=== PATIENT | female | born 1990 | race Caucasian/White ===

== ENCOUNTER → 2017-07-01 | Outpatient (REF) | payer OTHER | LOC: M SFHCWAGY 08:38 | DX: Z12.4 Encounter for screening for malignant neoplasm of cervix (principal) | CPT/HCPCS: 88142 ==

== ENCOUNTER → 2019-02-02 | Outpatient (REF) | payer OTHER | LOC: M LAB REF 09:35 | PROVIDERS: ATTEND Physician Assistant | DX: J02.9 Acute pharyngitis, unspecified (principal) ==

== ENCOUNTER → 2019-11-27 | Outpatient (CLI) | payer OTHER, SELFPAY | LOC: M LABSMTC 08:02 | PROVIDERS: ATTEND Pediatrics | DX: Z11.59 Encounter for screening for other viral diseases (principal); Z20.828 Contact with and (suspected) exposure to other viral communicable diseases ==

== ENCOUNTER → 2020-06-07 | Outpatient (REF) | payer BC ==
[2020-06-07 15:46] LABS: HEMOGLOBIN 13.2 g/dl (12.0-15.5); MEAN CORPUSCULAR HEMOGLOBIN 29.8 pg (27.0-33.0); MEAN CORPUSCULAR VOLUME 90.3 fl (80.0-96.0); PLATELET COUNT, AUTOMATED 272 10^3/uL (150-450); RED BLOOD COUNT 4.43 10^6/uL (4.00-5.40); WHITE BLOOD COUNT 9.6 10^3/uL (4.0-10.0)
[2020-06-07 16:18] LABS: FREE T4 0.96 NG/DL (0.76-1.46)
[2020-06-07 16:59] LABS: HEPATITIS C VIRUS ABY INDEX < 0.0 INDEX (<0.8); HIV 1&2 SCREEN CENTAUR NEGATIVE (NEGATIVE)
== END ==
LOC: M PLALAB 14:12
PROVIDERS: ATTEND Obstetrics & Gynecology
DX: Z34.91 Encounter for supervision of normal pregnancy, unspecified, first trimester (principal)

== ENCOUNTER → 2020-07-12 | Outpatient (CLI) | payer BC | LOC: M PLALAB 14:22 | PROVIDERS: ATTEND Specialist | DX: Z34.81 Encounter for supervision of other normal pregnancy, first trimester (principal); Z3A.00 Weeks of gestation of pregnancy not specified ==

== ENCOUNTER → 2020-07-12 | Outpatient (REF) | payer BC | LOC: M SFHCWAGY 16:49 | PROVIDERS: ATTEND Obstetrics & Gynecology | DX: Z11.3 Encounter for screening for infections with a predominantly sexual mode of transmission (principal) ==

== ENCOUNTER → 2020-08-08 | Outpatient (CLI) | payer BC ==
--- NOTE | 2020-08-08 12:47 | REP ---
INDICATION: ANATOMY. COMPARISON: None. TECHNIQUE: Transabdominal obstetric sonography. FINDINGS: Scanning through the gravid uterus demonstrates a viable single intrauterine gestation in cephalic lie. motion is observed and heart rate is recorded at 149 beats per minute. A anterior placenta is seen, grade 1, without evidence of placenta previa. Closed cervical length is measured at 4.6 cm transabdominally. No extrauterine abnormality is observed. Amniotic fluid is subjectively normal. No anomaly is seen. The following anatomic structures are identified and felt to be sonographically unremarkable: cranium, choroid plexus, cavum, cerebellum and posterior fossa, facial profile, lungs, diaphragm, left-sided stomach, abdominal wall cord insertion, three-vessel umbilical cord, kidneys and bladder, spine, and upper and lower extremities. nose and lips and four-chamber heart and outflow tract views are less than optimally seen today due to position.. Biometry chart: BPD 4.3 cm, 19 weeks 0 days Head circumference 15.5 cm, 18 weeks 3 days Abdominal circumference 13.1 cm, 18 weeks 5 days Femur length 2.8 cm, 18 weeks 5 days Humeral length 2.7 cm, 18 weeks 4 days HC AC ratio normal 1.18 Cephalic index normal 0.79 Estimated weight 251 g, 0 lb 8 oz, 69th percentile for 18 weeks 2 days IMPRESSION: Viable single intrauterine gestation at 18 weeks 5 days by today's composite sonographic criteria. IRLANDA by today's sonography 04 January 2021. No complication identified. Expected gestational age estimate based on known IRLANDA provided of 07 January 2021 is 18 weeks 2 days. <Electronically signed by Jem Jimenez > 08/08/20 [id number]
== END ==
LOC: M WHC 07:46
PROVIDERS: ATTEND Obstetrics & Gynecology
DX: Z36.3 Encounter for antenatal screening for malformations (principal); Z3A.18 18 weeks gestation of pregnancy

== ENCOUNTER → 2020-08-08 | Outpatient (REF) | payer BC | LOC: M PLALAB 12:23 | PROVIDERS: ATTEND Obstetrics & Gynecology | DX: O99.282 Endocrine, nutritional and metabolic diseases complicating pregnancy, second trimester (principal) ==

== ENCOUNTER → 2020-10-02 | Outpatient (CLI) | payer BC ==
--- NOTE | 2020-10-02 08:43 | REP ---
INDICATION: F/U ANATOMY COMPARISON: 08/08/2020 TECHNIQUE: Transabdominal obstetrical ultrasound with color Doppler evaluation. FINDINGS: Examination demonstrates a single live intrauterine in cephalic presentation. motion is identified by technologist. Placenta is noted anterior and grade 1 without evidence for placenta previa or abruption. Amniotic fluid volume is normal. Cervix appears closed. Selected gestational age: 26 weeks 1 day with IRLANDA 01/07/2021. Gestational age by current measurements 27 weeks 2 days with IRLANDA 12/30/2020. FHR equals 144 beats per minute. Estimated weight 1041 grams (81stpercentile). Anatomical assessment demonstrates normal structures including cranium, choroid plexus, cavum, cerebellum/posterior fossa, facial features, lungs, four-chamber heart/ventricular outflow tracts, diaphragm, stomach, cord insertion/three-vessel cord, kidneys/bladder, spine, and extremities. IMPRESSION: Single live intrauterine in cephalic presentation demonstrating appropriate estimated weight. In conjunction with prior examination anatomical assessment is complete and normal. <Electronically signed by Saran Cerda > 10/02/20 [id number]
== END ==
LOC: M WHC 07:52
PROVIDERS: ATTEND Advanced Practice Midwife
DX: Z34.82 Encounter for supervision of other normal pregnancy, second trimester (principal)

== ENCOUNTER → 2020-10-02 | Outpatient (CLI) | payer BC ==
[2020-10-02 14:10] LABS: FREE T4 0.73 NG/DL (0.76-1.46); THYROID STIMULATING HORMONE 5.63 uIU/ML (0.358-3.740)
== END ==
LOC: M PLALAB 09:07
PROVIDERS: ATTEND Obstetrics & Gynecology
DX: O99.282 Endocrine, nutritional and metabolic diseases complicating pregnancy, second trimester (principal)

== ENCOUNTER → 2020-10-02 | Outpatient (CLI) | payer BC ==
[2020-10-02 13:10] LABS: HEMATOCRIT 36.3 % (36.0-47.0); HEMOGLOBIN 11.8 g/dl (12.0-15.5); MEAN CORPUSCULAR HEMOGLOBIN 30.8 pg (27.0-33.0); MEAN CORPUSCULAR HGB CONC 32.5 g/dl (32.0-36.5); MEAN CORPUSCULAR VOLUME 94.8 fl (80.0-96.0); PLATELET COUNT, AUTOMATED 211 10^3/uL (150-450); RED BLOOD COUNT 3.83 10^6/uL (4.00-5.40); WHITE BLOOD COUNT 9.2 10^3/uL (4.0-10.0)
== END ==
LOC: M PLALAB 09:04
PROVIDERS: ATTEND Advanced Practice Midwife
DX: Z34.82 Encounter for supervision of other normal pregnancy, second trimester (principal)

== ENCOUNTER → 2020-11-22 | Outpatient (CLI) | payer BC ==
[2020-11-22 15:53] LABS: ALBUMIN 2.7 GM/DL (3.2-5.2); ALT/SGPT 20 U/L (12-78); BILIRUBIN,DIRECT < 0.1 MG/DL (0.0-0.2); BILIRUBIN,TOTAL 0.3 MG/DL (0.2-1.0); TOTAL PROTEIN 6.1 GM/DL (6.4-8.2)
== END ==
LOC: M PLALAB 12:36
PROVIDERS: ATTEND Advanced Practice Midwife
DX: L28.2 Other prurigo (principal)

== ENCOUNTER 2020-11-25 23:14 | Outpatient (CLI) | payer BC ==
[~2020-11-25] VITALS: Ht 165.1 cm; Wt 82.7 kg
[2020-11-25 23:44] VITALS: BP 130/75
[2020-11-26] MEDS ORDERED: LR 1,000 ML IV ONE (01:10)
[2020-11-26] MEDS ORDERED: LR 1,000 ML IV SCH (01:10)
[2020-11-26] MEDS ORDERED: ONDANSETRON 4MG/2ML VIAL IV ONE (01:10)
[2020-11-26 01:58] VITALS: BP 127/78
--- NOTE | 2020-11-26 02:11 | IPNPDOC ---
Obstetrical Progress Note Date of Service Nov 26, 2020 Subjective 30yo at 33+6 weeks EGA. Patient is s/p trip and fall while at work. No contact with abdomen. +FM; but had a period of decreased FM since fall shortly after coming home from work, which made her nervous about well being. In triage, she states baby is now moving very frequently. No abdominal / uterine pain or painful contractions, no vaginal bleeding or loss of fluid. PN course uncomplicated. VSS/af Abd: soft,nt,nd, no uterine fundal tenderness Ext: no c/c/e US,hill: cephalic, MVP 5cm. Multiple pockets >2cm, no placental anomaly EFM: Cat I, no decels [place]: irreg/rare ctx. A/P: 30yo s/p slip and fall, no injury. No abdominal contact. No clinical evidence of placental abruption. Reassuring maternal and status. -Routine third TM precautions reviewed. -Follow up in office as scheduled. DO HAMMAD Harden JONATHAN R. DO Nov 26, 2020 02:11
== END 2020-11-26 02:05 | disposition home or self-care (01) ==
LOC: M LDO 23:14
PROVIDERS: ATTEND Obstetrics & Gynecology
DX: O36.8130 Decreased fetal movements, third trimester, not applicable or unspecified (principal); Z04.3 Encounter for examination and observation following other accident; Z3A.33 33 weeks gestation of pregnancy
CPT/HCPCS: 59025; 76815; G0378; G0463

== ENCOUNTER → 2020-12-08 | Outpatient (CLI) | payer BC ==
[~2020-12-08] MED LIST: PRENTAB9 PO; SYNT150T PO
[2020-12-08 18:26] LABS: THYROID STIMULATING HORMONE 0.348 uIU/ML (0.358-3.740)
== END ==
LOC: M PLALAB 14:58
PROVIDERS: ATTEND Advanced Practice Midwife
DX: O99.283 Endocrine, nutritional and metabolic diseases complicating pregnancy, third trimester (principal)

== ENCOUNTER → 2020-12-08 | Outpatient (REF) | payer BC | LOC: M SFHCWAGY 17:09 | PROVIDERS: ATTEND Advanced Practice Midwife | DX: O99.283 Endocrine, nutritional and metabolic diseases complicating pregnancy, third trimester (principal) ==

== ENCOUNTER 2020-12-13 04:52 | Inpatient (IN) | payer BC ==
[~2020-12-13] VITALS: Ht 165.1 cm; Wt 83.6 kg
[2020-12-13] VITALS (16 sets, daily range): BP systolic 100–147; BP diastolic 59–109
[2020-12-13 06:38] LABS: HEMATOCRIT 34.5 % (36.0-47.0); HEMOGLOBIN 11.2 g/dl (12.0-15.5); MEAN CORPUSCULAR HEMOGLOBIN 28.6 pg (27.0-33.0); MEAN CORPUSCULAR HGB CONC 32.5 g/dl (32.0-36.5); MEAN CORPUSCULAR VOLUME 88.2 fl (80.0-96.0); PLATELET COUNT, AUTOMATED 211 10^3/uL (150-450); RED BLOOD COUNT 3.91 10^6/uL (4.00-5.40); WHITE BLOOD COUNT 9.8 10^3/uL (4.0-10.0)
[2020-12-13] MEDS ORDERED: METHYLERGONOVINE MALEATE 0.2 MG/ML VIAL (J2210) IM PRN (07:15)
[2020-12-13] MEDS ORDERED: OXYTOCIN INJ 10 UNITS/ML VIAL (J2590) IM PRN (07:15)
[2020-12-13] MEDS ORDERED: TRANEXAMIC ACID INJection 1,000 MG in NS 100 ML IV PRN (07:15)
[2020-12-13] MEDS ORDERED: LIDOCAINE 1% MDV 20ML VIAL INFIL PRN (07:15)
[2020-12-13] MEDS ORDERED: CARBOPROST TROMETHAMINE 250 MCG/ML AMP IM PRN (07:15)
[2020-12-13] MEDS ORDERED: OXYTOCIN DRIP 30 UNITS in IV 1 EA IV PRN ×4 (07:15)
[2020-12-13] MEDS ORDERED: BETAMETHASONE SOLUSPAN 6MG/ML 5ML VIAL (J0702 PER 3MG) IM SCH (07:15)
[2020-12-13] MEDS: miSOPROStol 50MCG 1/2 TABLET PO SCH ×2 (07:37→12:00)
--- NOTE | 2020-12-13 07:53 | HPE ---
HISTORY AND PHYSICAL DATE OF ADMISSION: 12/13/2020 HISTORY OF PRESENT ILLNESS: This is a 30-year-old 2 para 1-0-1-0 at 36 weeks and 3/7th weeks gestation with an EDC of 01/07/2021 based on first trimester ultrasound. She presents to Labor and Delivery today with reports of spontaneous rupture of membranes at 0430. She reports some mild contractions. She denies vaginal bleeding. The fetus has been active. care was initiated at [facility] in the first trimester. The course was complicated by hypothyroidism, history of Graves' disease treated with iodine radiation, currently controlled with 125 mcg of Levothyroxine. OBSTETRIC HISTORY: October 2012, elective termination of at 9 weeks gestation. OBSTETRIC LABS: B positive, antibody screen negative, syphilis negative, gonorrhea and chlamydia negative. Hepatitis B surface antigen negative, hepatitis C antibody nonreactive. HIV nonreactive. Urine culture: No growth. Rubella immune. Gestational diabetic screenin. GBS negative. PAST MEDICAL HISTORY: Hypothyroidism, Graves' disease. PAST SURGICAL HISTORY: None. FAMILY HISTORY: Lung cancer, diabetes, hypertension. SOCIAL HISTORY: The patient is single. She is a teacher. She is a smoker of approximately five cigarettes a day. Denies alcohol and drug use. No history of sexually transmitted infections. She denies a history of abuse, physical, sexual and emotional. ALLERGIES: Penicillin causes hives. Latex causes a rash. CURRENT MEDICATIONS: Levothyroxine 125 mcg daily, and vitamin. OBJECTIVE: Temperature is 97.6, pulse is 79, BP is 119/82, alert and oriented x3. She is in no discomfort. heart rate is 140 with moderate variability, positive accelerations, negative decelerations, contractions are every 4 minutes. Her abdomen is gravid, cephalic presentation, estimated weight is 6 pounds, grossly ruptured per Dr. Gregorio West. Sterile vaginal exam: Fingertip, 50% effaced, -3 station. ASSESSMENT: Intrauterine at 36 and 3/7th weeks. heart rate is Category 1, pre-term premature rupture of membranes. PLAN: Admit patient to Labor and Delivery, routine laboratories, out of bed ad fernando, regular diet at this time. Saline lock for IV access. Betamethasone 12 mg for lung maturity. Start Misoprostol 50 mcg p.o. q. 4 hours for cervical ripening. The risks, benefits and alternatives have been reviewed with the patient, all of her questions have been answered. She has been verbally consented for emergency surgery and blood products if they are necessary. I anticipate cervical ripening. The patient will likely consider an epidural when she is in active labor.
[2020-12-13] MEDS ORDERED: SYNT150T PO (09:37)
[2020-12-13] MEDS ORDERED: PRENTAB9 PO (09:37)
[2020-12-13] MEDS ORDERED: HOME MED LIST COMPLETE! XX SCH (09:40)
[2020-12-13] MEDS: LEVOTHYROXINE 137MCG TABLET (0.137MG) PO SCH (09:55)
[2020-12-13] MEDS ORDERED: ACETAMINOPHEN 500 MG TAB PO PRN (14:20)
[2020-12-13] MEDS ORDERED: ACETAMINOPHEN TAB 650MG DOSE (2X325MG) PO PRN (14:20)
[2020-12-13] MEDS ORDERED: DOCUSATE SODIUM 100MG CAPSULE PO PRN (14:20)
[2020-12-13] MEDS ORDERED: RHOGAM 300 MCG (1500 IU) INJ (J2790) IM SCH (14:20)
[2020-12-13] MEDS ORDERED: MEASLES,MUMPS,RUBELLA VACCINE INJ (MMR-II) (90707) SC SCH (14:20)
[2020-12-13] MEDS ORDERED: IBUPROFEN 800 MG TAB PO PRN (14:20)
[2020-12-13] MEDS ORDERED: DIBUCAINE 1% OINTMENT 30GM TOP PRN (14:20)
[2020-12-13] MEDS ORDERED: METHYLERGONOVINE MALEATE 0.2 MG TAB PO PRN (14:20)
[2020-12-13] MEDS ORDERED: IBUPROFEN 600MG TAB PO PRN (14:20)
--- NOTE | 2020-12-13 15:47 | DN ---
DELIVERY NOTE DATE OF DELIVERY: 12/13/2020 Manish is a 30-year-old 2, para 0-1-1-1, who was admitted to labor and delivery with premature rupture of membranes. She had two doses of misoprostol, one dose of betamethasone, and labor did ensue. She reached complete dilation at 1327. She pushed to a normal spontaneous vaginal delivery of a live male infant in OA position with restitution to right occiput transverse (ROT) position at 1335. There was no nuchal cord. The shoulders delivered spontaneously, and the corpus immediately followed. The male was placed on the maternal abdomen crying and active. Mouth and nares were bulb suctioned. The cord was clamped times two once pulsations ceased and cut by the father of the baby under my direction. Spontaneous expulsion of an intact placenta with 3-vessel cord by Coombs mechanism was at 1353. Uterine hemostasis achieved with intravenous (IV) Pitocin rapid infusion. Methergine 0.2 mg intramuscular (IM) and uterine fundal massage. Estimated blood loss 350 mL. Perineum and vagina inspected. Noted to have first-degree midline laceration as well as a right labial laceration. The lacerations were infiltrated with 1% lidocaine and repaired with 3-0 Vicryl Rapide in the usual fashion. The male weighed 6 pounds 13 ounces, 3080 grams. scores were 9 and 9. Mother is going to breast-feed her son, and the family have named their son Efrain. At the close of delivery, lap counts, needle counts, and instrument counts were correct and verified.
[2020-12-14] MEDS: LEVOTHYROXINE 137MCG TABLET (0.137MG) PO SCH (05:23)
[2020-12-14 06:00] VITALS: BP 112/73
[2020-12-14] MEDS: PRENATAL VITAMINS CHEWABLE TABLET PO SCH (07:41)
--- NOTE | 2020-12-14 15:19 | IPNPDOC ---
Progress Note Date of Service: Dec 14, 2020 Progress Note SUBJECT: Status post . She has been ambulating, voiding spontaneously without issue and tolerating regular diet. Lochia decreasing/minimal. Pain is well-controlled. Denies headache, visual changes, right upper quadrant pain, shortness breath or chest pain. OBJECTIVE: VITAL SIGNS: Within normal limits, afebrile. Alert and oriented times three. Abdomen: Fundus firm at U-2. Soft, NTTP. ASSESSMENT: Status post uncomplicated spontaneous vaginal delivery. Vitals within normal limits, afebrile, hemodynamically stable with no evidence of infection. PLAN: Discharge to home tomorrow Tylenol and Motrin for pain. Routine instructions/precautions reviewed. Routine PP visit in 6 weeks in clinic. VS, I&O, 24H, Fishbone Vital Signs/I&O Vital Signs Date Time Temp Pulse Resp B/P (MAP) Pulse Ox O2 Delivery O2 Flow Rate FiO2 12/14/20 06:00 98.4 88 18 112/73 (86) Room Air I&O- Last 24 Hours up to 6 AM 12/14/20 06:00 Intake Total 500 ml Output Total 1000 ml Balance -500 ml HATTIE CUEVA DO Dec 14, 2020 15:19
[2020-12-14] MEDS ORDERED: HYDROCORTISONE 1% CREAM 30 GM TOP PRN (17:45)
[2020-12-14 18:00] VITALS: BP 116/57
[2020-12-15 06:00] VITALS: BP 115/69
[2020-12-15] MEDS: LEVOTHYROXINE 137MCG TABLET (0.137MG) PO SCH (06:14)
[2020-12-15] MEDS: PRENATAL VITAMINS CHEWABLE TABLET PO SCH (08:24)
[2020-12-15] MEDS ORDERED: BOOSTRIX/ADACEL VACCINE (DIPHTH/PERTUSS/ACELL/TETANUS) 0.5ML SYR IM ONE (11:00)
[2020-12-15] MEDS ORDERED: IBUP80TA PO (11:20)
[2020-12-15] MEDS ORDERED: ACET-683 PO (11:20)
[2020-12-15] MEDS ORDERED: COLA100C5 PO (11:20)
== END 2020-12-15 15:19 | disposition home or self-care (01) | DRG 560 ==
LOC: M LDO 04:52 → M LDI 05:40 → M OBS 17:22
PROVIDERS: ADMIT Specialist; ATTEND Advanced Practice Midwife
PROC: 10E0XZZ Delivery of Products of Conception, External Approach (ICD-10-PCS; principal; 2020-12-13)
PROC: 0HQ9XZZ Repair Perineum Skin, External Approach (ICD-10-PCS; 2020-12-13)
DX: O42.013 Preterm premature rupture of membranes, onset of labor within 24 hours of rupture, third trimester (principal); E89.0 Postprocedural hypothyroidism; O99.334 Smoking (tobacco) complicating childbirth; F17.210 Nicotine dependence, cigarettes, uncomplicated; O99.284 Endocrine, nutritional and metabolic diseases complicating childbirth; O70.0 First degree perineal laceration during delivery; Z37.0 Single live birth

== ENCOUNTER → 2020-12-20 | Outpatient (CLI) | payer BC ==
[~2020-12-20] MED LIST changes: +ACET-683 PO; +COLA100C5 PO; +IBUP80TA PO
== END ==
LOC: M LABSMTC 11:08
PROVIDERS: ATTEND Family Medicine
DX: Z11.52 Encounter for screening for COVID-19 (principal)

== ENCOUNTER → 2021-01-30 | Outpatient (CLI) | payer BC ==
--- NOTE | 2021-01-30 12:52 | REP ---
INDICATION: IRREGULAR BLEEDING POST . COMPARISON: None. TECHNIQUE: Transabdominal and transvaginal scanning performed. FINDINGS: Uterine dimensions are 8.6 x 4.6 x 5.9 cm. Endometrial echo is heterogeneous and 27 mm in AP dimension and centrally placed. There is no endometrial fluid collection. The bladder measures 14.3 x 7.8 x 9.9cm. The right ovary has dimensions of 2.9 x 1.3 x 2.2 cm. It's Doppler flow is normal with a resistive index of 0.49. The left ovary dimensions are 3.4 x 1.6 x 2.2 cm. It's Doppler flow was normal with resistive index of 0.54. There is no adnexal mass identified. No free fluid is seen in the cul-de-sac. IMPRESSION: Thickened heterogeneous endometrium, maximum thickness is 27 mm. The findings suggest blood products and/or retained products of conception in the endometrial cavity. <Electronically signed by Ghassan Serna > 01/30/21 [id number]
== END ==
LOC: M WHC 10:23
PROVIDERS: ATTEND Advanced Practice Midwife
DX: N92.6 Irregular menstruation, unspecified (principal)

== ENCOUNTER → 2021-03-03 | Outpatient (CLI) | payer BC ==
[~2021-03-03] MED LIST changes: +LEVO-94 PO
== END ==
LOC: M LABSMTC 11:49
PROVIDERS: ATTEND Anesthesiology
DX: Z11.52 Encounter for screening for COVID-19 (principal); Z20.822 Contact with and (suspected) exposure to COVID-19

== ENCOUNTER 2021-03-07 11:22 | Day surgery (SDC) | payer BC ==
[~2021-03-07] VITALS: Ht 165.1 cm; Wt 75.7 kg
[~2021-03-07 11:22] MED LIST changes: +LR 1,000 ML IV ONE
--- OUTSIDE RECORDS SUMMARY | 2021-03-07 11:26 | CCD ---
Author Author [facility] Organization [facility] Address Unknown Phone Unavailable Care Team Providers Care Chief Internal Auditor Name Role Phone IGOR, DAVY PA Unavailable Unavailable IGOR, DAVY PA Unavailable Unavailable IGOR, DAVY PA Unavailable Unavailable IGOR, DAVY PA Unavailable Unavailable IGOR, DAVY PA Unavailable Unavailable IGOR, DAVY PA Unavailable Unavailable IGOR, DAVY PA Unavailable Unavailable IGOR, DAVY PA Unavailable Unavailable IGOR, DAVY PA Unavailable Unavailable IGOR, DAVY PA Unavailable Unavailable IGOR, DAVY PA Unavailable Unavailable IGOR, DAVY PA Unavailable Unavailable IGOR, DAVY PA Unavailable Unavailable IGOR, DAVY PA Unavailable Unavailable IGOR, DAVY PA Unavailable Unavailable Yuko, A Rosie SERVICE DOG TRAINER Unavailable Unavailable Yuko, A Rosie SERVICE DOG TRAINER Unavailable Unavailable Yuko, A Rosie SERVICE DOG TRAINER Unavailable Unavailable Yuko, A Rosie SERVICE DOG TRAINER Unavailable Unavailable Yuko, A Rosie SERVICE DOG TRAINER Unavailable Unavailable Yuko, A Rosie SERVICE DOG TRAINER Unavailable Unavailable Yuko, A Rosie SERVICE DOG TRAINER Unavailable Unavailable Yuko, A Rosie SERVICE DOG TRAINER Unavailable Unavailable Yuko, A Rosie SERVICE DOG TRAINER Unavailable Unavailable Yuko, A Rosie SERVICE DOG TRAINER Unavailable Unavailable Yuko, A Rosie SERVICE DOG TRAINER Unavailable Unavailable Yuko, A Rosie SERVICE DOG TRAINER Unavailable Unavailable Yuko, A Rosie SERVICE DOG TRAINER Unavailable Unavailable Yuko, A Rosie SERVICE DOG TRAINER Unavailable Unavailable Yuko, A Rosie SERVICE DOG TRAINER Unavailable Unavailable Yuko, A Rosie SERVICE DOG TRAINER Unavailable Unavailable Yuko, A Rosie SERVICE DOG TRAINER Unavailable Unavailable Yuko, A Rosie SERVICE DOG TRAINER Unavailable Unavailable Yuko, A Rosie SERVICE DOG TRAINER Unavailable Unavailable Yuko, A Rosie SERVICE DOG TRAINER Unavailable Unavailable Yuko, A Rosie SERVICE DOG TRAINER Unavailable Unavailable Yuko, A Rosie SERVICE DOG TRAINER Unavailable Unavailable Yuko, A Rosie SERVICE DOG TRAINER Unavailable Unavailable Yuko, A Rosie SERVICE DOG TRAINER Unavailable Unavailable Yuko, A Rosie SERVICE DOG TRAINER Unavailable Unavailable Yuko, A Rosie SERVICE DOG TRAINER Unavailable Unavailable Yuko, A Rosie SERVICE DOG TRAINER Unavailable Unavailable Yuko, A Rosie SERVICE DOG TRAINER Unavailable Unavailable Yuko, A Rosie SERVICE DOG TRAINER Unavailable Unavailable Yuko, A Rosie SERVICE DOG TRAINER Unavailable Unavailable Yuko, A Rosie SERVICE DOG TRAINER Unavailable Unavailable Yuko, A Rosie SERVICE DOG TRAINER Unavailable Unavailable Yuko, A Rosie SERVICE DOG TRAINER Unavailable Unavailable Yuko, A Rosie SERVICE DOG TRAINER Unavailable Unavailable Yuko, A Rosie SERVICE DOG TRAINER Unavailable Unavailable Yuko, A Rosie SERVICE DOG TRAINER Unavailable Unavailable Yuko, A Rosie SERVICE DOG TRAINER Unavailable Unavailable Yuko, A Rosie SERVICE DOG TRAINER Unavailable Unavailable Yuko, A Rosie SERVICE DOG TRAINER Unavailable Unavailable Yuko, A Rosie SERVICE DOG TRAINER Unavailable Unavailable Yuko, A Rosie SERVICE DOG TRAINER Unavailable Unavailable Yuko, A Rosie SERVICE DOG TRAINER Unavailable Unavailable Yuko, A Rosie SERVICE DOG TRAINER Unavailable Unavailable Yuko, A Rosie SERVICE DOG TRAINER Unavailable Unavailable Yuko, A Rosie SERVICE DOG TRAINER Unavailable Unavailable Yuko, A Rosie SERVICE DOG TRAINER Unavailable Unavailable Yuko, A Rosie SERVICE DOG TRAINER Unavailable Unavailable Yuko, A Rosie SERVICE DOG TRAINER Unavailable Unavailable Yuko, A Rosie SERVICE DOG TRAINER Unavailable Unavailable Yuko, A Rosie SERVICE DOG TRAINER Unavailable Unavailable Yuko, A Rosie SERVICE DOG TRAINER Unavailable Unavailable Yuko, A Rosie SERVICE DOG TRAINER Unavailable Unavailable Yuko, A Rosie SERVICE DOG TRAINER Unavailable Unavailable Yuko, A Rosie SERVICE DOG TRAINER Unavailable Unavailable Yuko, A Rosie SERVICE DOG TRAINER Unavailable Unavailable KOLBY WILLARD MD Unavailable Unavailable MONTSE, KOLBY ROUSE MD Unavailable Unavailable MONTSEKOLBY MD Unavailable Unavailable MONTSEKOLBY MD Unavailable Unavailable MONTSE, KOLBY ROUSE MD Unavailable Unavailable MONTSE, KOLBY ROUSE MD Unavailable Unavailable MONTSE, KOLBY ROUSE MD Unavailable Unavailable MONTSEKOLBY MD Unavailable Unavailable MONTSEKOLBY MD Unavailable Unavailable ESTEE, Giacomo JUSTICE MD Unavailable Unavailable ESTEE, Giacomo JUSTICE MD Unavailable Unavailable ESTEE, Giacomo JUSTICE MD Unavailable Unavailable ESTEE, Giacomo JUSTICE MD Unavailable Unavailable ESTEE, Giacomo JUSTICE MD Unavailable Unavailable ESTEE, Giacomo JUSTICE MD Unavailable Unavailable ESTEE, Giacomo JUSTICE MD Unavailable Unavailable ESTEE, Giacomo JUSTICE MD Unavailable Unavailable ESTEE, Giacomo JUSTICE MD Unavailable Unavailable ESTEE, Giacomo JUSTICE MD Unavailable Unavailable ESTEE, Giacomo JUSTICE MD Unavailable Unavailable ESTEE, Giacomo JUSTICE MD Unavailable Unavailable ESTEE, Giacomo JUSTICE MD Unavailable Unavailable ESTEE, Giacomo JUSTICE MD Unavailable Unavailable ESTEE, Giacomo JUSTICE MD Unavailable Unavailable ESTEE, Giacomo JUSTICE MD Unavailable Unavailable ESTEE, Giacomo JUSTICE MD Unavailable Unavailable ESTEE, Giacomo JUSTICE MD Unavailable Unavailable ESTEE, Giacomo JUSTICE MD Unavailable Unavailable ESTEE, Giacomo JUSTICE MD Unavailable Unavailable ESTEE, Giacomo JUSTICE MD Unavailable Unavailable ESTEE, Giacomo JUSTICE MD Unavailable Unavailable ESTEE, Giacomo JUSTICE MD Unavailable Unavailable ESTEE, Giacomo JUSTICE MD Unavailable Unavailable ESTEE, Giacomo JUSTICE MD Unavailable Unavailable SETEE, Giacomo JUSTICE MD Unavailable Unavailable ESTEE, Giacomo JUSTICE MD Unavailable Unavailable ESTEE, Giacomo JUSTICE MD Unavailable Unavailable ESTEE, Giacomo JUSTICE MD Unavailable Unavailable ESTEE, E VINH EVANGELISTA Unavailable Unavailable ESTEE, E VINH EVANGELISTA Unavailable Unavailable ESTEE, E VINH EVANGELISTA Unavailable Unavailable ESTEE, E VINH EVANGELISTA Unavailable Unavailable ESTEE, E VINH EVANGELISTA Unavailable Unavailable ESTEE, E VINH EVANGELISTA Unavailable Unavailable ESTEE, E VINH EVANGELISTA Unavailable Unavailable ESTEE, E VINH EVANGELISTA Unavailable Unavailable ESTEE, E VINH EVANGELISTA Unavailable Unavailable ESTEE, E VINH EVANGELISTA Unavailable Unavailable ESTEE, E VINH EVANGELISTA Unavailable Unavailable ESTEE, E VINH EVANGELISTA Unavailable Unavailable ESTEE, E VINH EVANGELISTA Unavailable Unavailable ESTEE, E VINH EVANGELISTA Unavailable Unavailable ESTEE, E VINH EVANGELISTA Unavailable Unavailable ESTEE, E VINH EVANGELISTA Unavailable Unavailable ESTEE, E VINH EVANGELISTA Unavailable Unavailable ESTEE, E VINH EVANGELISTA Unavailable Unavailable ESTEE, E VINH EVANGELISTA Unavailable Unavailable ESTEE, E VINH EVANGELISTA Unavailable Unavailable ESTEE, E VINH EVANGELISTA Unavailable Unavailable ESTEE, E VINH EVANGELISTA Unavailable Unavailable ESTEE, E VINH EVANGELISTA Unavailable Unavailable ESTEE, E VINH EVANGELISTA Unavailable Unavailable ESTEE, E VINH EVANGELISTA Unavailable Unavailable ESTEE, E VINH EVANGELISTA Unavailable Unavailable ESTEE, E VINH EVANGELISTA Unavailable Unavailable ESTEE, E VINH EVANGELISTA Unavailable Unavailable ESTEE, E VINH EVANGELISTA Unavailable Unavailable ESTEE, E VINH EVANGELISTA Unavailable Unavailable ESTEE, E VINH EVANGELISTA Unavailable Unavailable ESTEE, E VINH EVANGELISTA Unavailable Unavailable ESTEE, E VINH EVANGELISTA Unavailable Unavailable ESTEE, E VINH EVANGELISTA Unavailable Unavailable ESTEE, E VINH EVANGELISTA Unavailable Unavailable ESTEE, E VINH EVANGELISTA Unavailable Unavailable ESTEE, E VINH EVANGELISTA Unavailable Unavailable ESTEE, E VINH EVANGELISTA Unavailable Unavailable ESTEE, E VINH EVANGELISTA Unavailable Unavailable ESTEE, E VINH EVANGELISTA Unavailable Unavailable ESTEE, E VINH EVANGELISTA Unavailable Unavailable ESTEE, E VINH EVANGELISTA Unavailable Unavailable ESTEE, E VINH EVANGELISTA Unavailable Unavailable ESTEE, E VINH EVANGELISTA Unavailable Unavailable ESTEE, E VINH EVANGELISTA Unavailable Unavailable ESTEE, E VINH EVANGELISTA Unavailable Unavailable ESTEE, Giacomo JUSTICE MD Unavailable Unavailable ESTEE, Giacomo JUSTICE MD Unavailable Unavailable ESTEE, Giacomo JUSTICE MD Unavailable Unavailable ESTEE, Giacomo JUSTICE MD Unavailable Unavailable ESTEE, Giacomo JUSTICE MD Unavailable Unavailable ESTEE, Giacomo JUSTICE MD Unavailable Unavailable ESTEE, Giacomo JUSTICE MD Unavailable Unavailable ESTEE, Giacomo JUSTICE MD Unavailable Unavailable ALEJANDRO, GEORGE DORY PA-C Unavailable Unavailable ALEJANDRO, GEORGE DORY PA-C Unavailable Unavailable ALEJANDRO, GEORGE DORY PA-C Unavailable Unavailable ALEJANDRO, GEORGE DORY PA-C Unavailable Unavailable ALEJANDRO, GEORGE DORY PA-C Unavailable Unavailable ALEJANDRO, GEORGE DORY PA-C Unavailable Unavailable ALEJANDRO, GEORGE DORY PA-C Unavailable Unavailable ALEJANDRO, GEORGE DORY PA-C Unavailable Unavailable ALEJANDRO, GEORGE DORY PA-C Unavailable Unavailable ALEJANDRO, GEORGE DORY PA-C Unavailable Unavailable Re-disclosure Warning The records that you are about to access may contain information from federally-assisted alcohol or drug abuse programs. If such information is present, then the following federally mandated warning applies: This information has been disclosed to you from records protected by federal confidentiality rules (42 CFR part 2). The federal rules prohibit you from making any further disclosure of this information unless further disclosure is expressly permitted by the written consent of the person to whom it pertains or as otherwise permitted by 42 CFR part 2. A general authorization for the release of medical or other information is NOT sufficient for this purpose. The Federal rules restrict any use of the information to criminally investigate or prosecute any alcohol or drug abuse patient.The records that you are about to access may contain highly sensitive health information, the redisclosure of which is protected by Article 27-F of the [facility] Public Health law. If you continue you may have access to information: Regarding HIV / AIDS; Provided by facilities licensed or operated by the [facility] Office of Mental Health; or Provided by the [facility] Office for People With Developmental Disabilities. If such information is present, then the following [facility] mandated warning applies: This information has been disclosed to you from confidential records which are protected by state law. State law prohibits you from making any further disclosure of this information without the specific written consent of the person to whom it pertains, or as otherwise permitted by law. Any unauthorized further disclosure in violation of state law may result in a fine or fdc sentence or both. A general authorization for the release of medical or other information is NOT sufficient authorization for further disc losure. Allergies and Adverse Reactions Type Description Substance Reaction Status Data Source(s ) Propensity to adverse reactions AZITHROMYCIN [facility] Family History Family Member Name Family Member Gender Family Member Status Date o f Status Description Data Source(s) Unknown Unknown Problem [facility] ([facility] Unknown Unknown Problem [facility] ([facility]) Unknown Unknown Problem [facility] ([facility]) Unknown Unknown Problem [facility] ([facility]) Unknown Unknown Problem MEDENT ([facility]) pgf,father Encounters Encounter Providers Location Date Indications Data Source(s ) Outpatient Attender: VINH FONTANEZ MD [id number] 1 04/08/2020 12:00:00 AM [facility] Outpatient Attender: Rosie Huntley FNPReferrer: Rosie Huntley [facility] 05/24/2020 03:02:00 PM [facility] - 05/24/2020 03:02:00 PM [facility] Outpatient Attender: VINH FONTANEZ MDReferrer: Rosie Huntley [facility]LABOTHPROV 05/24/2020 03:01:00 PM [facility] - 05/24/2020 03:01:00 PM [facility] Outpatient Attender: Rosie LOAIZAP 05/24/2020 02:20 :00 PM [facility] Outpatient [facility] 05/24/2020 12:00:00 AM EST eCW1 ([facility]) Outpatient [facility] 05/24/2020 12:00:00 AM EST eCW1 ([facility]) Outpatient Attender: VINH FONTANEZ MD [id number] 04/08/2019 12:00:00 AM EST - 02/07/2020 11:40:55 AM EST Postprocedural hypothyroidism [facility] Postprocedural hypothyroidism Inpatient Attender: PAMDA WILLARD MDAdmitter: DORY ALLEN PA-C 12/19/2012 10:18:00 PM EDT - 12/20/2012 09:30:00 AM EDT [facility] Emergency Attender: DAVY FLORES 09/03 10:23:00 AM EDT - 09/03/2012 01:30:00 PM [facility] Medications Medication Brand Name Start Date Product Form Dose Route Admi nistrative Instructions Pharmacy Instructions Status Indications Reaction Description Data Source(s) Levothyroxine Sodium 0.125 MG Oral Table t Levothyroxine Sodium 125 MCG Oral Tablet (SYNTHROID) Levothyroxine Sodium 125 MCG Oral Tablet (SYNTHROID) 01/09/2020 12:00:00 AM EDT active [place] red hypothyroidism Take 1 tablet by mouth once daily [facility] Acquired hypothyroidism Insurance Providers Payer name Policy type / Coverage type Policy ID Covered alliance party ID Covered alliance party's relationship to green[place] Policy [place] Plan Information [employer] U [id number] Child [id number] [facility] U [id number] Self [id number] [facility] I [id number] Self [id number] [facility] MEDICAID [id number] S [id number] [facility] U [id number] Self [id number] [facility] MEDICAID [id number] S [id number] [facility] MEDICAID [id number] S [id number] [facility] MEDICAID [id number] S [id number] [employer] [id number] CHILD [id number] SELF PAY [id number] S [id number] [facility] MEDICAID [id number] S [id number] [facility] COMM[facility]AN [facility] [id number] SP [id number] SELF PAY ONLY [id number] SP [id number] UN COMMUNITY PLAN [facility] [id number] SP [id number] [facility] [id number] [facility] [id number] [facility] [id number] ANSI-Medicaid [id number] UNITED HE[employer]CARE MEDICAID [id number] S [id number] [facility] [id number] [facility] Health Maintenance Organization ([facility]) [id number] Self [id number] [facility] Health Maintenance Organization ([facility]) [id number] Self UN COMMUNITY PLAN MCDO [id number] SP [id number] UNITED [employer] MEDICAID [id number] HMO [id number] S [id number] SELF PAY UNAVAILABLE SP UNAVAILA BLE [place] Commercial [id number] Family Dependent POMCO [id number] [place] O [id number] P [id number] [facility] FEDERAL SERVICES [facility] [id number] S [id number] O UNAVAILABLE UNAVAILA BLE [place] P[place] 302/307 [id number] SP [id number] [employer] [place] 306/806 [id number] SP [id number] [employer] [place] 306/806 [id number] SP [id number] [employer] [place] PPO 302/307 [id number] SP [id number] [employer] [place] PPO 302/307 [id number] SP [id number] [employer] [place] [id number] S [id number] Problems, Conditions, and Diagnoses Code Display Name Description Problem Type Effective Dates Data Source(s) E89.0 Postprocedural hypothyroidism POSTPROCEDURAL HYPOTHYRO IDISM Diagnosis 05/24/2020 03:01:00 PM [facility] Z34.91 Encounter for supervision of normal , unspecified, first trimester ENCNTR FOR SUPRVSN OF NORMAL PREG, UNSP, FIRST TRI Diagnosis 05/24/2020 02:20:00 PM [facility] Z32.01 Encounter for test, result pos itive ENCOUNTER FOR TEST, RESULT POSITIVE Diagnosis [facility]2 Amenorrhea, unspecified AMENORRHEA, UNSPECIFIED Diagno sis 05/24/2020 02:20:00 PM [facility] N91.2 [id number] Amenorrhea Problem 05/24/2020 12:00:00 AM ES T eCW1 ([facility]) Surgeries/Procedures No Information Results ID Date Data Source [id number] 03/03/2021 11:50:00 AM EST [facility] Name Value Range Interpretation Code Description Data Chelsey rce(s) Supporting Document(s) SARS-CoV-2 (COVID-19) RNA [Presence] in Respiratory specimen by ZEYNEP with probe detection Not Detected [facility] This lab was ordered by [facility] and reported by [email or web address] ID Date Data Source [id number] 02/06/2021 10:18:37 AM EDT [facility] Name Value Range Interpretation Code Description Data Chelsey rce(s) Supporting Document(s) Progress Note [facility] [id number]/[id number]PaV8UuRZG5xR5zUBC3TFfUGhOfZkSsQTLp [facility] [file] [id number]== ID Date Data Source [id number] 02/06/2021 10:18:32 AM EDT [facility] Name Value Range Interpretation Code Description Data Chelsey rce(s) Supporting Document(s) Progress Note [facility] PZWUPe9wKhAPQsBb16/IDYgbBKCmk7JrYEeaETo9LHeoGLXdF0KpHST6rR1mIRY9UYlSSxIsDrNxQOXy lbm [file] [id number]QumJKGXLj8Y ID Date Data Source [id number] 12/20/2020 11:20:00 AM EDT [facility] Name Value Range Interpretation Code Description Data Chelsey rce(s) Supporting Document(s) SARS-CoV-2 (COVID-19) RNA [Presence] in Respiratory specimen by ZEYNEP with probe detection Positive for 2019-nCoV [facility] This lab was ordered by [facility] and reported by [email or web address] ID Date Data Source [id number] 05/24/2020 04:13:00 PM EST [facility] [phone] Name Value Range Interpretation Code Description Data Chelsey rce(s) Supporting Document(s) FREE T4 1.0 ng/dL 0.76-1.46 [facility] ID Date Data Source [id number] 05/24/2020 04:13:00 PM EST [facility] [phone] Name Value Range Interpretation Code Description Data Chelsey rce(s) Supporting Document(s) TSH 1.903 uIU/mL 0.360-3.740 [facility] ID Date Data Source [id number] 05/24/2020 04:30:00 PM [facility] Name Value Range Interpretation Code Description Data Chelsey rce(s) Supporting Document(s) GLUCOSE 89 mg/dL 74-106 [facility] BLOOD UREA NITROGEN 10 mg/dL 7-18 [facility] ital CREATININE 0.68 mg/dL 0.6-1.0 [facility] SODIUM 139 mmol/L 136-145 [facility] POTASSIUM 3.5 mmol/L 3.5-5.1 [facility] CHLORIDE 102 mmol/L 98-107 [facility] CO2 28 mmol/L 21-32 [facility] CALCIUM 9.0 mg/dL 8.5-10.1 [facility] ANION GAP 9.0 mmol/L 5-12 [facility] GLOMERULAR FILTRATION RATE >90 mL/min [facility] GFR IS CALCULATED IN mL/min/1.73m2 BETH L FUNCTION: >90MILDLY DECREASED: 60-89MILDY TO MODERATELY DECREASED: 45-59 MODERATELY TO SEVERELY DECREASED: 30-44SEVERELY DECREASED: 15-29RENAL FAILURE: <15 AST 13 U/L 15-37 [facility] ALT 14 U/L 12-78 [facility] ALKALINE PHOSPHATASE 50 U/L 46-116 [facility] pital TOTAL BILIRUBIN 0.2 mg/dL 0.2-1.0 [facility] TOTAL PROTEIN 6.7 g/dl 6.4-8.2 [facility] ALBUMIN 3.8 gm/dL 3.4-5.0 [facility] ID Date Data Source [id number] 05/24/2020 04:30:00 PM [facility] Name Value Range Interpretation Code Description Data Chelsey rce(s) Supporting Document(s) BETA HCG,QUANT 34852 mIU/mL [facility] al Female(non ) <10mIU/mLW eeks after Conception mIU/mL 1 Week 5-501-2 Weeks 50-5002-3 Weeks 100-5,0003-4 Weeks 500-10,0004-5 Weeks 1,000-50,0005-6 Weeks 10,000-100,0006-8 Weeks 15,000-200,0002nd Trimester 10,000-100,000 ID Date Data Source [id number] 05/24/2020 03:54:00 PM EST [facility] Name Value Range Interpretation Code Description Data Chelsey rce(s) Supporting Document(s) RHEUMATOID FACTOR SCREEN NEGATIVE NEGATIVE [facility] ID Date Data Source [id number] 05/24/2020 03:46:00 PM EST [facility] Name Value Range Interpretation Code Description Data Chelsey rce(s) Supporting Document(s) RH TYPE POSITIVE [facility] ID Date Data Source [id number] 05/24/2020 03:46:00 PM EST [facility] Name Value Range Interpretation Code Description Data Chelsey rce(s) Supporting Document(s) BLOOD TYPE ABO B [facility] ID Date Data Source BETA HCG,QUANT 05/24/2020 12:00:00 AM EST [facility] Name Value Range Interpretation Code Description Data Chelsey rce(s) Supporting Document(s) [id number] BETA HCG,QUANT eCW1 ([facility]) ID Date Data Source [id number] 02/07/2020 11:32:39 AM EST [facility] Name Value Range Interpretation Code Description Data Chelsey rce(s) Supporting Document(s) Progress Note [facility] [id number]/YFZenYIHne3CeRVsrPMl1KXdoYMUxE0IoGZW8lC2oNCT0WWbITqBeVzLnVCFz [facility] [file] y/sUZcG/VQT1gY3AxflY7XGzkpl2sYQy/wb+Wi [file] AgICAgICAgICAgICAgICAgICAgICAgICAgICAgICAg WSBmNEKaKQCiWJ2UQUEtANWqHEMtYLFyUIHqVJEtNTDhQENxHQBvFOZhSHRxDHZwCKCbYJFbSLOfYHPu PAUxKXFmVGPtXBFbSSUoTMLyMHWjAUNxTCKeREDuLHZoBFTvVTBmPGErOYXzJEXfDQAiRX5KIPFjTDXc ICAgICAgICAgICAgICAgICAgICAgICAgICAgICAgIC AgICAgICAgICAgICAgICAgICAgICAgICAgICAgICAgICAgICAgICAgICAgICAgICAgICAgICAgICAgIC ViQT8DYCFvEIXcVGGvXQKoNWPfPZZdRNNxNJCaABSlHVYaKUYoAOXtYLKaICMaYVNyQCMiPIIqYOMdKQ AgICAgICAgICAgICAgICAgICAgICAgICAgICAgICAg YDZoJEQnFUQtXECxPY3CGTUzBXUvGFBmBQBkVKFnXVYgRBVgRCLtTINcEXEsEURvUFHhGXLfASEiWFTd MKTbRTJnQWTlFBRzPSIrAKNwBRBeYMKeVPCcWTUhQBUuBATlKGMwOTRaHUIdQOOyOUTqVPGyRE9DNZJx ICAgICAgICAgICAgICAgICAgICAgICAgICAgICAgIC AgICAgICAgICAgICAgICAgICAgICAgICAgICAgICAgICAgICAgICAgICAgICAgICAgICAgICAgICAgIC OmDXIxYG1VOJBoADLcYWMgEQMyRZFtZFXmLHDpZJVtLUZtUVUgTDRsAFDvUKEbVUBgDGIfTCUgELEvCC AgICAgICAgICAgICAgICAgICAgICAgICAgICAgICAg FHDlBJDrQUVxOWGiBYTfKV1ZHIPhALFsMPCrNZVqGYEvGFUyUUJzOGAkCVNsWDRlFDSsBZWsCPVwAKZa XOCgSPChSKIbNXUuRLRyBLTmTLTrXHIaMWAhJGCfIGArVWSxYPIiVZJzOWXwEAJhGLNhBLQhABNqZY1Q ICAgICAgICAgICAgICAgICAgICAgICAgICAgICAgIC AgICAgICAgICAgICAgICAgICAgICAgICAgICAgICAgICAgICAgICAgICAgICAgICAgICAgICAgICAgIC KaNETrHBZqQI6FTZGpOLHjSCFuBHUdOJLfILVqOVRqGEMqOJJhASYxTHKyQTTgIDWfKYFyKDUiFUCxTU AgICAgICAgICAgICAgICAgICAgICAgICAgICAgICAg FMXlXIAnZOTpRRGkAAYjJSOeAM3FQN01mYJup7D4WNLaRO7olqj/Uj3OQFeckkMvlXVuRY2DRqSjWV2f uc1BQlEfZT8xwp3JSXeRGnZiC5H9bIYyNFGmQJVBEnTpR22qJXmuTg42MUjmKSJxBdIpVRv8St9HZmXg M1klFXScHeY4VTQwHeG0KSRxJdR0FAMxCmPlBAhsKN 2Hp4VizLHoECs+Gq3HYM4tv1ZbPClvXFUgBA9hox6TBYsGIjAeG7YshaB7EBImGXFfOg1ZFXEtHJHuwT CjIXFwBNLEKlUtS0NpiC32XXJCJg7+FRzsjvAvKyfFRhUlKCWch1SvQXh5EX9TUUMgHCm1bRKsOOTqM2 Ylj7QnAl99THVcSqrjNb0bMUA8ntPIVBb4gSQvBJWj gedyUSRmRVIcQHKmNo5wXOPdDEIpMiFfPREUVN3WACGhVZVtfREkUIKwFEPFJV2UQGriKMH3PEHifrBe hMUuMDnjVG6EGQUqqmEbTisqTNRPCUa+Bs7BNG0ol7DyMSduKTKfGP6sze7HVOpKEjJtX3M5iKEzN4S7 XRniVc8EJEYnHOLsXnprXSCATIhrVF7VAK4exrO7NB 1FjGMoURKfIIWoeTCsVCs7N25khUFjJLarKV0XICR+Lyndon+Do1QCBUzFVWxIATxXwWnWDOEXdZxK1ZtB2 LLc5UnF8HvQW40pPhjfiFdNYzdJE2EIV0eGCFnYEUSJL3SiNWpiG9xaoUsYXJiOTJZYvJbE61mlLChJP JiBIV1YCMxQr9GHQRzS6FdwqCfbWjbwcApOWHsWXCE JP4KSZrpwxYmrUDbzVxbHF82rJvfZL2RRo3BRdDsAG9xnm9BhIVaQz6LSTEpGt2YMBRqGJRzSKZlYFG9 FFSsIfGxUYwyONHpKQBtBML8ROAkYTSxEW6AMsOvBNEsViWhKoytEXMyKNXjrg2LHTWvGYVwFmJkVJIj EIYgJDKdBDnhBCHpASDeFFB8UESaWTWhBV8XQmYcER KkNRCdLBMyFHCaXWNeed2CQVXfLVDzPkWdRWFaRQRfWLJkGPkiRONaVOI3MPF6JKVjAZXxIK1SOfKnNV KzKWEsHLYfBQKqPGMksr1DZUDbJUYmFzC4PcUyDVSiWRBaGMtzBCFrNAO0AXn3VLLbQSIvQN0YAzCcDF VgQMl5AOVdQMJwWRSqyl9QLOIzIMFaCUz2EbDbWMOb VNOmRDmiKLIzAQX1ZPB0BBPcGCSqBL0OOmEpFMGqUVz1UMMhJULbGFJrrw5KEOYcNUKpWIM3KgFqYXNu WILhNCyoGRVcXNRxByd6FZMsNSNcGU5PQgLeFLViIpK6LDHcODIxAXXssm7ZIVPtTNAfWqRvKDNpSQSr SITqWHsiJMZdJAXcMtU4UHTzKHHlSN5GPbSeSZWmTa V7LMvcXDTtYGTduq9KICPxZUDjCuYwOJVtSXQiTWBcXJtyZHOzQALuCOw2MIKgUXRnOE1QPcUuXSTeSs W6AobwBRYmBGGrwu9OSFEgXJMcRgm8RjLfEQAsWEWsMOchHPGmTPA1DQgiDWElFSMyIX6GKnEcGSRgLy UqCdtdFMGfSNQrkh1FLNZsUCEnICB6HkTgLCZwRCCs QWbaYFHxYEY9RkwdWTJcHFFuJU9FUlMcAQWzRhgzLCKtUELwOKPpwu1NIASxABAaHbQmUCCsABEuBCCz ZWxyXBXnCUY0SmC2HWUvVDXjIU9AMjDuQDegMGUFUsw3NWlnF6u7ZHGhRp2JV2Kvt9PdXeNqMKBWMRhq NF1zuyLrHCFdWf4AS5nMVwhiMRSqRHJxMhf0XfSgJy u0MTP0DZStNTJ8SHF0XZNoJR2nVUC2TFQnMVA3KiajFSM6WQr2Ntf6RfS8Pnn2UtZ3SeY3JdHhKW9TFf 7VQeD6GXP2wRCdSf0PYuc1LLnUCeJpYW4ADHi= Procedure Social History Code Duration Value Status Description Data Source(s ) Smoking 05/24/2020 12:00:00 AM EST Former Smoker completed Former Smoker eCW1 ([facility]) Smoking 05/24/2020 12:00:00 AM EST Former Smoker completed Former Smoker eCW1 ([facility]) Alcohol intake 02/07/2020 12:00:00 AM EST Current drinker of al cohol (finding) completed Current drinker of alcohol (finding) [facility] Tobacco use and exposure 02/07/2020 12:00:00 AM EST Never used co mpleted Never used [facility] Cigarette pack-years 02/07/2020 12:00:00 AM EST UNK completed [facility] Cigarettes smoked current (pack per day) - Reported 02/07/20 20 12:00:00 AM EST UNK completed [facility] Smoking 02/07/2020 12:00:00 AM EST Former smoker completed Former smoker [facility] Vital Signs ID Date Data Source UNK Name Value Range Interpretation Code Description Data Source(s) Body height 62 [in_i] 62 [in_i] eCW1 ([facility]) Body weight 154.2 [lb_av] 154.2 [lb_av] eCW1 ([facility]) Body mass index (BMI) [Ratio] 28.20 kg/m2 28.20 kg/m2 eCW1 ([facility]) Body temperature 97.8 [degF] 97.8 [degF] eCW1 ( [facility]) Heart rate 65 /min 65 /min eCW1 ([facility][note 3]) Respiratory rate 18 /min 18 /min eCW1 ([facility]) Oxygen saturation in Arterial blood by Pulse oximetry 99 % 99 % eCW1 ([facility]) ID Date Data Source [id number] 02/07/2020 05:00:18 PM EST [facility] Name Value Range Interpretation Code Description Data Source(s) WEIGHT RECORDED 148 lb 148 lb [facility] ID Date Data Source [id number] 05/26/2020 09:33:00 AM EST [facility] l Name Value Range Interpretation Code Description Data Source(s) WEIGHT 64.41 kilos 64.41 kilos [facility] al HEIGHT 165.1 centimeters 165.1 centimeters [facility] WEIGHT 64.41 kilos 64.41 kilos [facility] al HEIGHT 165.1 centimeters 165.1 centimeters [facility] ID Date Data Source [id number] 05/26/2020 09:33:00 AM EST [facility] l Name Value Range Interpretation Code Description Data Source(s) WEIGHT 64.09700 kilos 64.88245 kilos [facility] HEIGHT 165.1 centimeters 165.1 centimeters [facility] Patient Treatment Plan of Care Planned Activity Planned Date Details Description Data Source (s) Levothyroxine Sodium 0.125 MG Oral Tablet 01/09/2020 12:00:00 AM ED [facility]
[2021-03-07 11:48] LABS: HEMATOCRIT 40.7 % (36.0-47.0); HEMOGLOBIN 13.2 g/dl (12.0-15.5); MEAN CORPUSCULAR HEMOGLOBIN 28.6 pg (27.0-33.0); MEAN CORPUSCULAR HGB CONC 32.4 g/dl (32.0-36.5); MEAN CORPUSCULAR VOLUME 88.1 fl (80.0-96.0); PLATELET COUNT, AUTOMATED 253 10^3/uL (150-450); RED BLOOD COUNT 4.62 10^6/uL (4.00-5.40); WHITE BLOOD COUNT 6.2 10^3/uL (4.0-10.0)
--- NOTE | 2021-03-07 13:51 | ROOPDOC ---
[facility] Report Of Operation Report of Operation DATE OF PROCEDURE: 03/07/21 REOPERATIVE DIAGNOSES: 1. Thickened endometrium 2. Abnormal uterine bleeding POSTOPERATIVE DIAGNOSES: 1. Thickened endometrium 2. Abnormal uterine bleeding PROCEDURE PERFORMED: Hysteroscopy, myosure, dilation and curettage. SURGEON: Lizzy Jesus MD GEOSPATIAL SPECIALIST: None. ANESTHESIA: General via laryngeal mask airway ESTIMATED BLOOD LOSS: 5ml IV FLUIDS: 1000 mL of lactated Ringer's solution. URINE OUTPUT: Not obtained. PREOPERATIVE ANTIBIOTICS: None. OPERATIVE FINDINGS: Thickened endometrium with approximately 2 cm raised area which was sampled using the MyoSure. No evidence of polyp. Bilateral ostia was visualized. DESCRIPTION OF PROCEDURE: After informed consent was obtained written consent was reviewed, the patient brought to operating room where she was placed under general anesthesia. She was then placed in lithotomy position and was prepped and draped in normal sterile fashion. Time-out in the operating room was then performed identifying the patient, procedure be performed as well as drug allergies. [place] speculum was placed revealing the cervix. Anterior lip of the cervix grasped with a single-tooth tenaculum. The uterus then sounded to 8.5 cm. The cervix then sequentially dilated using Hanks dilators. Hysteroscope was then advanced through the cervical os and endometrial cavity was observed with the above-noted findings. Myosure was then advanced. Endometrial sampling was performed using the MyoSure device. Myosure device was removed. Hysteroscope was then removed. Sharp curette was then advanced through the cervical os to the level of the fundus and the uterus curetted in a 360 degree fashion. Tissue was obtained and this was sent to pathology for evaluation. The single-tooth tenaculum was then removed. Tenaculum sites were noted be hemostatic. The speculum was then removed. The patient was then taken out of lithotomy position, was awakened from general anesthesia and taken recovery in stable condition. LIZZY JESUS MD. Mar 07, 2021 13:51
[2021-03-07] MEDS ORDERED: LIDOCAINE 2% 100MG/5ML SDV (FOR ANES.) As Ordered ONE (14:28)
[2021-03-07] MEDS ORDERED: fentaNYL 100 MCG/2 ML INJECTION (J3010) As Ordered ONE (14:28)
[2021-03-07] MEDS ORDERED: propofoL 200 MG/20 ML VIAL As Ordered ONE (14:28)
[2021-03-07] MEDS ORDERED: ACETAMINOPHEN 1000MG 100ML IV BTL (OFIRMEV) (J0131 PER 10MG) As Ordered ONE (15:51)
[2021-03-07] MEDS ORDERED: dexameTHASONE 4 MG/ML 1ML VIAL (J1100 PER 1MG) As Ordered ONE (15:56)
[2021-03-07] MEDS ORDERED: ONDANSETRON 4MG/2ML VIAL As Ordered ONE (15:57)
[2021-03-07] MEDS ORDERED: LR 1,000 ML IV SCH (16:30)
[2021-03-07] MEDS ORDERED: fentaNYL 100 MCG/2 ML INJECTION (J3010) IV PRN (16:30)
[2021-03-07] MEDS ORDERED: oxyCODONE 5MG TAB PO PRN (16:30)
[2021-03-07] MEDS ORDERED: ONDANSETRON 4MG/2ML VIAL IV PRN (16:30)
[2021-03-07] MEDS ORDERED: HYDROMORPHONE HCL 0.5 MG/ 0.5 ML SYRINGE (J1170 PER 1) IV PRN (16:30)
[2021-03-07 17:33] VITALS: BP 117/70
[2021-03-07] MEDS ORDERED: KETOROLAC 30 MG/ML 1ML VIAL IV SCH (18:00)
== END 2021-03-07 17:40 | disposition home or self-care (01) ==
LOC: M SDC 11:22
PROVIDERS: ATTEND Obstetrics & Gynecology
DX: N93.9 Abnormal uterine and vaginal bleeding, unspecified (principal); N85.00 Endometrial hyperplasia, unspecified; E03.9 Hypothyroidism, unspecified; Z79.899 Other long term (current) drug therapy; Z88.0 Allergy status to penicillin; Z88.1 Allergy status to other antibiotic agents; Z91.040 Latex allergy status
CPT/HCPCS: 36415; 58558; 81025; 85027; 86850; 86900; 86901; 88305; J0131; J1100; J2405; J3010

== ENCOUNTER → 2024-10-19 | Outpatient (REF) | payer OTHER ==
[~2024-10-19] MED LIST changes: -LR 1,000 ML IV ONE
== END ==
LOC: M PLALAB 13:45
PROVIDERS: ATTEND Nurse Practitioner Family
DX: Z53.9 Procedure and treatment not carried out, unspecified reason (principal)

== ENCOUNTER → 2024-10-19 | Outpatient (CLI) | payer OTHER | LOC: M PLALAB 13:56 | PROVIDERS: ATTEND Nurse Practitioner Family | DX: Z34.80 Encounter for supervision of other normal pregnancy, unspecified trimester (principal) ==

== ENCOUNTER → 2024-11-16 | Outpatient (CLI) | payer OTHER | LOC: M WHC 06:31 | PROVIDERS: ATTEND Nurse Practitioner Family | DX: Z34.82 Encounter for supervision of other normal pregnancy, second trimester (principal); Z3A.19 19 weeks gestation of pregnancy ==

== ENCOUNTER → 2025-01-07 | Outpatient (CLI) | payer OTHER ==
[2025-01-07 11:26] LABS: PLATELET COUNT, AUTOMATED 254 10^3/uL (150-450)
[2025-01-07 12:00] LABS: GLUCOSE CHALLENGE TEST 1 HOUR 108 MG/DL (LESS THAN 140)
[2025-01-07 12:17] LABS: Trichomonas vaginalis (AMP) NOT DETECTED (NEGATIVE)
[2025-01-07 12:29] LABS: HIV 1&2 SCREEN NEGATIVE (NEGATIVE)
[2025-01-07 12:37] LABS: HEPATITIS C VIRUS ABY INDEX < 0.02 INDEX (<0.8)
[2025-01-07 12:41] LABS: GC DNA AMPLIFICATION NEGATIVE (NEGATIVE)
== END ==
LOC: M PLALAB 08:03
PROVIDERS: ATTEND Nurse Practitioner Family
DX: O09.522 Supervision of elderly multigravida, second trimester (principal)

== ENCOUNTER → 2025-01-17 | Outpatient (CLI) | payer OTHER ==
[2025-01-17 14:22] LABS: FREE T4 1.08 NG/DL (0.89-1.76)
== END ==
LOC: M PLALAB 09:28
PROVIDERS: ATTEND Nurse Practitioner Family
DX: O99.282 Endocrine, nutritional and metabolic diseases complicating pregnancy, second trimester (principal); O09.522 Supervision of elderly multigravida, second trimester; Z3A.28 28 weeks gestation of pregnancy

== ENCOUNTER → 2025-02-15 | Outpatient (REF) | payer OTHER | LOC: M PLALAB 10:01 | PROVIDERS: ATTEND Nurse Practitioner Family | DX: N89.8 Other specified noninflammatory disorders of vagina (principal) ==

== ENCOUNTER → 2025-03-02 | Outpatient (REF) | payer OTHER ==
[~2025-03-02] MED LIST changes: +ASPI81CH33 PO
== END ==
LOC: M SFHCWAGY 12:35
PROVIDERS: ATTEND Nurse Practitioner Family
DX: O09.213 Supervision of pregnancy with history of pre-term labor, third trimester (principal)

== ENCOUNTER 2025-03-04 15:14 | Outpatient (CLI) | payer OTHER ==
[~2025-03-04] VITALS: Ht 165.1 cm; Wt 86.9 kg
[~2025-03-04 15:14] MED LIST changes: -ASPI81CH33 PO
[2025-03-04 15:37] VITALS: BP 110/72
[2025-03-04] MEDS ORDERED: ASPI81CH33 PO (15:41)
[2025-03-04 16:32] VITALS: BP 110/59
[2025-03-04 17:31] VITALS: BP 111/68
[2025-03-04] MEDS ORDERED: HOME MED LIST COMPLETE! XX SCH (17:40)
[2025-03-04 18:31] VITALS: BP 103/69
== END 2025-03-04 19:45 | disposition home or self-care (01) ==
LOC: M LDO 15:14
PROVIDERS: ATTEND Advanced Practice Midwife
DX: O26.893 Other specified pregnancy related conditions, third trimester (principal); O09.513 Supervision of elderly primigravida, third trimester; O99.283 Endocrine, nutritional and metabolic diseases complicating pregnancy, third trimester; R10.20 Pelvic and perineal pain unspecified side; Z87.51 Personal history of pre-term labor; Z3A.34 34 weeks gestation of pregnancy; E03.9 Hypothyroidism, unspecified; Z88.0 Allergy status to penicillin; Z91.040 Latex allergy status; Z88.8 Allergy status to other drugs, medicaments and biological substances
CPT/HCPCS: 59025; G0463

== ENCOUNTER 2025-03-10 01:30 | Outpatient (CLI) | payer OTHER ==
[~2025-03-10] VITALS: Ht 165.1 cm; Wt 86.5 kg
[~2025-03-10 01:30] MED LIST changes: +ASPI81CH33 PO
[2025-03-10 01:43] VITALS: BP 113/74
[2025-03-10] MEDS ORDERED: HOME MED LIST COMPLETE! XX SCH (02:00)
== END 2025-03-10 03:15 | disposition home or self-care (01) ==
LOC: M LDO 01:30
PROVIDERS: ATTEND Advanced Practice Midwife
DX: O26.893 Other specified pregnancy related conditions, third trimester (principal); O09.513 Supervision of elderly primigravida, third trimester; O99.283 Endocrine, nutritional and metabolic diseases complicating pregnancy, third trimester; O09.213 Supervision of pregnancy with history of pre-term labor, third trimester; R25.2 Cramp and spasm; E03.9 Hypothyroidism, unspecified; Z3A.35 35 weeks gestation of pregnancy
CPT/HCPCS: 59025; G0463

== ENCOUNTER → 2025-03-16 | Outpatient (CLI) | payer OTHER | LOC: M WHC 10:04 | PROVIDERS: ATTEND Nurse Practitioner Family | DX: O09.523 Supervision of elderly multigravida, third trimester (principal) ==

== ENCOUNTER 2025-03-22 20:23 | Outpatient (CLI) | payer OTHER ==
[~2025-03-22] VITALS: Ht 165.1 cm; Wt 90.1 kg
[2025-03-22 20:37] VITALS: BP 121/75
[2025-03-22 21:19] LABS: BASO # 0.0 10^3/uL (0.0-0.2); BASO % 0.1 % (0.0-1.0); EOS # 0.0 10^3/uL (0.0-0.5); EOS % 0.2 % (0.0-3.0); LYMPH # 0.8 10^3/uL (1.5-5.0); LYMPH % 9.1 % (24.0-44.0); MONO # 0.4 10^3/uL (0.0-0.8); MONO % 4.2 % (2.0-8.0); NEUTROPHILS # 7.9 10^3/uL (1.5-8.5); NEUTROPHILS % 85.8 % (36.0-66.0); PLATELET COUNT, AUTOMATED 180 10^3/uL (150-450)
[2025-03-22 22:14] LABS: HIV 1&2 SCREEN NEGATIVE (NEGATIVE)
[2025-03-22 22:22] LABS: HEPATITIS C VIRUS ABY INDEX 0.02 INDEX (<0.8)
[2025-03-23] MEDS ORDERED: HOME MED LIST COMPLETE! XX SCH (00:50)
[2025-03-23] MEDS ORDERED: LEVO125T4 PO (04:51)
[2025-03-23 06:33] VITALS: BP 113/66
== END 2025-03-23 06:44 | disposition home or self-care (01) ==
LOC: M LDO 20:23
PROVIDERS: ATTEND Obstetrics & Gynecology
DX: O47.1 False labor at or after 37 completed weeks of gestation (principal); Z3A.37 37 weeks gestation of pregnancy
CPT/HCPCS: 59025; 85025; 86780; 86803; 86850; 86900; 86901; 87340; 87389; 96360; G0463

== ENCOUNTER 2025-04-02 07:58 | Inpatient (IN) | payer OTHER ==
[2025-04-02] VITALS (14 sets, daily range): BP systolic 101–138; BP diastolic 51–83
[~2025-04-02] VITALS: Ht 165.1 cm; Wt 88.1 kg
[~2025-04-02 07:58] MED LIST changes: +LEVO125T4 PO
[2025-04-02] MEDS ORDERED: ECOT81TA5 PO (08:26)
[2025-04-02] MEDS ORDERED: OXYTOCIN DRIP 30 UNITS in IV 1 EA IV PRN (08:45)
[2025-04-02] MEDS ORDERED: TRANEXAMIC ACID INJection 1,000 MG in NS 100 ML IV PRN (08:45)
[2025-04-02] MEDS ORDERED: METHYLERGONOVINE MALEATE 0.2 MG/ML 1 ML VIAL IM PRN (08:45)
[2025-04-02] MEDS ORDERED: OXYTOCIN INJ 10UNITS/ML 1ML VIAL IM PRN (08:45)
[2025-04-02] MEDS ORDERED: CARBOPROST TROMETHAMINE 250 MCG/ML AMP IM PRN (08:45)
[2025-04-02] MEDS ORDERED: BUTORPHANOL 2 MG/ML 1 ML VIAL IV PRN (09:05)
[2025-04-02] MEDS: miSOPROStol 25 MCG 1/4 TABLET PO ONE (09:54)
[2025-04-02 10:04] LABS: PLATELET COUNT, AUTOMATED 243 10^3/uL (150-450)
[2025-04-02 10:53] LABS: HIV 1&2 SCREEN NEGATIVE (NEGATIVE)
[2025-04-02 11:01] LABS: HEPATITIS C VIRUS ABY INDEX 0.04 INDEX (<0.8)
[2025-04-02] MEDS: miSOPROStol 50 MCG 1/2 TABLET PO PRN (13:56)
[2025-04-03] MEDS: OXYTOCIN DRIP 30 UNITS in IV 1 EA IV PRN (03:36)
[2025-04-03] MEDS: LIDOCAINE 1% MDV 20 ML VIAL INFIL PRN (03:36)
[2025-04-03 03:44] VITALS: BP 138/75
[2025-04-03] MEDS ORDERED: METHYLERGONOVINE MALEATE 0.2 MG TAB PO PRN (03:50)
[2025-04-03] MEDS ORDERED: ANUSOL HC CREAM 30 GM TOP PRN (03:50)
[2025-04-03] MEDS ORDERED: IBUPROFEN 600 MG TAB PO PRN (03:50)
[2025-04-03] MEDS ORDERED: ACETAMINOPHEN 500 MG TAB PO PRN (03:50)
[2025-04-03] MEDS ORDERED: IBUPROFEN 800 MG TAB PO PRN (03:50)
[2025-04-03] MEDS ORDERED: RHOGAM 300MCG (1500IU) INJ IM SCH (03:50)
[2025-04-03] MEDS ORDERED: ACETAMINOPHEN 325 MG TAB PO PRN (03:50)
[2025-04-03 03:59] VITALS: BP 134/80
[2025-04-03 04:14] VITALS: BP 134/81
[2025-04-03 04:29] VITALS: BP 129/73
[2025-04-03] MEDS: DIBUCAINE 1% OINTMENT 30 GM TOP PRN (05:34)
[2025-04-03] MEDS: PRENATAL VITAMINS CHEWABLE TABLET PO SCH (08:44)
[2025-04-03] MEDS: LEVOTHYROXINE 125 MCG TABLET (0.125 MG) PO SCH (08:55)
[2025-04-03 18:10] VITALS: BP 115/68; O2SAT 99
[2025-04-04 06:00] VITALS: BP_SYST 101; BP_SYST 113; BP_DIAS 65; BP_DIAS 73; O2SAT 97
[2025-04-04 07:52] LABS: PLATELET COUNT, AUTOMATED 229 10^3/uL (150-450)
[2025-04-04] MEDS: DOCUSATE SODIUM 100 MG CAPSULE PO PRN (08:00)
[2025-04-04] MEDS ORDERED: ACET32TAB PO (10:00)
[2025-04-04] MEDS ORDERED: IBUP600T42 PO (10:00)
[2025-04-05] MEDS ORDERED: MEASLES,MUMPS,RUBELLA VACCINE INJ (MMR-II) SC.IMMUN ONE (09:00)
== END 2025-04-04 18:20 | disposition home or self-care (01) | DRG 807 ==
LOC: M LDI 07:58 → M OBS 04-03 04:47
PROVIDERS: ADMIT Obstetrics & Gynecology; ATTEND Obstetrics & Gynecology
PROC: 3E0P7GC Introduction of Other Therapeutic Substance into Female Reproductive, Via Natural or Artificial Opening (ICD-10-PCS; 2025-04-02)
PROC: 10E0XZZ Delivery of Products of Conception, External Approach (ICD-10-PCS; principal; 2025-04-03)
PROC: 0HQ9XZZ Repair Perineum Skin, External Approach (ICD-10-PCS; 2025-04-03)
PROC: 10907ZC Drainage of Amniotic Fluid, Therapeutic from Products of Conception, Via Natural or Artificial Opening (ICD-10-PCS; 2025-04-03)
DX: O32.6XX0 Maternal care for compound presentation, not applicable or unspecified (principal); Z37.0 Single live birth; Z3A.39 39 weeks gestation of pregnancy; O70.0 First degree perineal laceration during delivery; Z79.890 Hormone replacement therapy; Z88.0 Allergy status to penicillin; Z88.1 Allergy status to other antibiotic agents; Z91.040 Latex allergy status; Z79.82 Long term (current) use of aspirin